=== PATIENT | female | born 1990 | race African-American/Black ===

== ENCOUNTER 2020-04-22 17:02 | Emergency (ER) | payer SELFPAY ==
[~2020-04-22] VITALS: Ht 172.7 cm; Wt 84.0 kg
[2020-04-22] MEDS ORDERED: KETOROLAC 30MG/ML VIAL IM ONE (18:30)
[2020-04-22 19:30] VITALS: BP 118/75
== END 2020-04-22 19:32 | disposition home or self-care (01) ==
LOC: ER 17:02
DX: M54.5 Low back pain (principal); R06.02 Shortness of breath
CPT/HCPCS: 71045; 81025; 96372; 99283; J1885

== ENCOUNTER 2020-10-08 18:35 | Emergency (ER) | payer MEDICAID ==
[~2020-10-08] VITALS: Ht 172.7 cm; Wt 75.0 kg
[2020-10-08] MEDS ORDERED: ACETAMINOPHEN 325MG TABLET PO ONE (19:15)
[2020-10-08] MEDS ORDERED: ACETAMINOPHEN 325MG TABLET PO STA (23:16)
[2020-10-08] MEDS ORDERED: ACETAMINOPHEN 325MG TABLET PO NR (23:20)
[2020-10-08] MEDS ORDERED: SODIUM CHLORIDE 0.9% 1,000 ML IV ONE (23:30)
[2020-10-09 00:07] LABS: HEMATOCRIT. 36.6 % (36.0-48.0); HEMOGLOBIN. 12.7 g/dL (12.0-16.0); MEAN CORPUSCULAR HEMOGLOBIN 32.1 pg (28.0-32.0); MEAN CORPUSCULAR VOLUME 92.6 fL (81.0-99.0); MEAN PLATELET VOLUME 9.4 fl (7.4-10.4); PLATELET 185 x1000/uL (130-400); RED BLOOD CELL COUNT 3.95 mill/uL (4.2-5.4)
[2020-10-09 00:11] LABS: CHLORIDE 102 mEq/L (98-107)
[2020-10-09 00:29] LABS: CLARITY URINE CLEAR (CLEAR); COLOR URINE YELLOW (YELLOW); KETONES URINE NEGATIVE (NEGATIVE); LEUKOCYTE ESTERASE URINE 3+ (NEGATIVE); NITRITE URINE NEGATIVE (NEGATIVE); OCCULT BLOOD URINE TRACE (NEGATIVE); PROTEIN URINE NEGATIVE (NEGATIVE); SPECIFIC GRAVITY URINE 1.003 (1.005-1.030); UROBILINOGEN URINE 0.2 E.U./dL (0.2-1.0)
[2020-10-09 00:51] LABS: PLATELET ESTIMATE NORMAL
[2020-10-09] MEDS ORDERED: POTASSIUM CHLORIDE 20MEQ TABLET SR PO NR (02:00)
[2020-10-09] MEDS ORDERED: CLINDAMYCIN 600MG PREMIX 50 ML IV NR (03:00)
[2020-10-09] MEDS ORDERED: GENTAMICIN 120MG PREMIX 100 ML IV NR (04:00)
[2020-10-09] MEDS ORDERED: CLIN300C12 MT (06:45)
[2020-10-09] MEDS: AZITHROMYCIN 500 MG TABLET PO ONE ×2 (06:54→06:59)
[2020-10-09 07:08] VITALS: BP 110/72
[2020-10-11 15:09] LABS: NEISSERIA GONORRHOEAE NAA Negative (Negative)
== END 2020-10-09 07:19 | disposition home or self-care (01) ==
LOC: ER 20:07 → CANRESERV 10-09 07:34 → ENRESERV 10-09 07:34 → CANBEDREQ 10-09 16:46
DX: O26.891 Other specified pregnancy related conditions, first trimester (principal); N73.0 Acute parametritis and pelvic cellulitis; I49.9 Cardiac arrhythmia, unspecified; Z3A.18 18 weeks gestation of pregnancy
CPT/HCPCS: 36415; 76805; 80053; 81003; 85025; 87210; 87491; 87591; 93005; 96365; 96368; 96375; 99285; J1580; J3490; J7030

== ENCOUNTER 2020-10-10 02:06 | Emergency (ER) | payer MEDICAID ==
[~2020-10-10] VITALS: Ht 170.2 cm; Wt 75.0 kg
[~2020-10-10 02:06] MED LIST: CLIN300C12 MT
[2020-10-10 02:20] VITALS: BP 99/73
== END 2020-10-10 06:16 | disposition left against medical advice (07) ==
LOC: ER 02:06
DX: N93.8 Other specified abnormal uterine and vaginal bleeding (principal); Z53.21 Procedure and treatment not carried out due to patient leaving prior to being seen by health care provider
CPT/HCPCS: 88309